=== PATIENT | male | born 1950 | race African-American/Black ===

== ENCOUNTER 2018-03-07 09:45 | Inpatient (IN) ==
[2018-03-07 11:52] LABS: Basophils # 0.1 10*3/uL (0.0-0.2); Basophils % 0.5 % (0.0-0.8); Eosinophils # 0.5 10*3/uL (0.0-0.87); Hematocrit 20.4 VOL% (42.0-52.0); Hemoglobin 6.6 GM/DL (14.0-18.0); Immature Granulocytes % 0.5 %; Immature Granulocytes Absolute 0.05 #; Lymphocytes # 2.3 10*3/uL (1.4-4.0); Lymphocytes % 23.7 % (21.2-54.2); Mean Corpuscular HGB Conc 32.4 GM/DL (32-36); Mean Corpuscular Hemoglobin 30 PG (27-34); Mean Corpuscular Volume 93.2 FL (87-102); Mean Platelet Volume 9.8 FL (9.6-12.0); Monocytes # 0.7 10*3/uL (0.11-0.8); Monocytes % 7.5 % (1.7-12.7); Neutrophils % 62.8 % (38.7-73.9); Platelet Count 296 T/CUMM (130-400); Red Blood Count 2.19 MC/CUMM (3.8-5.5); Red Cell Distribution Width 13.5 % (9.3-17.3); White Blood Count 9.5 T/CUMM (4-12)
[2018-03-07 12:19] LABS: Calcium 6.3 MG/DL (8.5-10.1); Osmolality,Calculated 297.4 MOS/KG (273-304)
[2018-03-07 12:24] LABS: Potassium 6.2 MMOL/L (3.5-5.1)
[2018-03-07] MEDS ORDERED: INSULIN REGULAR 100 UNIT/ML IV STA (12:31)
[2018-03-07] MEDS ORDERED: ALBUTEROL 2.5 MG/3 ML NEB RESP TX STA (12:31)
[2018-03-07] MEDS ORDERED: DEXTROSE 50% 25 GM/50 ML VIAL IV STA (12:31)
[2018-03-07] MEDS ORDERED: GLUCAGON 1 MG VIAL IM PRN ×2 (13:03→13:10)
[2018-03-07] MEDS ORDERED: NICOTINE 21 MG/24 HR PATCH TRANSDERM PRN (13:03)
[2018-03-07] MEDS ORDERED: ONDANSETRON 4 MG/2 ML VIAL IV PRN (13:03)
[2018-03-07] MEDS ORDERED: DEXTROSE 50% 25 GM/50 ML VIAL IV PRN ×2 (13:03→13:10)
[2018-03-07] MEDS ORDERED: guaiFENesin/DM ER 600-30 MG TABLET PO PRN (13:03)
[2018-03-07] MEDS ORDERED: diphenhydrAMINE CAP 25 MG CAPSULE PO PRN (13:03)
[2018-03-07] MEDS ORDERED: DEXTROSE 50% 25 GM/50 ML SYRINGE IV ONE ×2 (13:04→14:22)
[2018-03-07] MEDS ORDERED: SODIUM POLYSTYRENE SULFATE 15 GM/60 ML BOTTLE PO ONE (13:07)
[2018-03-07] MEDS ORDERED: MAGNESIUM SULF RIDER 4 GM in PREMIX 1 EACH IV PRN (13:10)
[2018-03-07] MEDS ORDERED: SODIUM CHLORIDE 0.9% 1,000 ML IV PRN (13:12)
[2018-03-07] MEDS ORDERED: SODIUM CHLORIDE 0.9% 1,000 ML IV SCH (13:30)
[2018-03-07 13:48] LABS: Thyroid Stimulating Hormone 2.44 uIU/ml (0.358-3.74)
[2018-03-07] MEDS ORDERED: SODIUM BICARB INJ 50 MEQ in SODIUM CHLORIDE 0.45% 1,000 ML IV SCH (14:00)
[2018-03-07] MEDS ORDERED: SODIUM BICARB INJ 100 MEQ in SODIUM CHLORIDE 0.9% 1,000 ML IV SCH (14:00)
[2018-03-07] MEDS ORDERED: DEXTROSE 50% 25 GM/50 ML VIAL IV ONE (14:27)
[2018-03-07] MEDS ORDERED: CALCIUM CHLORIDE 1,000 MG in SODIUM CHLORIDE 0.9% 100 ML IV ONE (15:00)
[2018-03-07] MEDS: CITRIC ACID/SODIUM CITRATE 30 ML UDCUP PO SCH ×2 (17:40→20:54)
[2018-03-07 17:59] LABS: % Iron Saturation 15.5 % (18-50); Uric Acid 7.5 MG/DL (3.5-7.2)
[2018-03-07] MEDS: INSULIN REGULAR 100 UNIT/ML SUBCUT SCH ×2 (19:56→21:58)
[2018-03-07] MEDS: CARVEDILOL 12.5 MG TABLET PO SCH (20:52)
[2018-03-07] MEDS: ENOXAPARIN 30 MG/0.3 ML SYRINGE SUBCUT SCH (20:54)
[2018-03-07] MEDS: SODIUM BICARB INJ 100 MEQ in STERILE WATER INJ 1,000 ML IV SCH (21:59)
[2018-03-08 06:26] LABS: Basophils # 0.1 10*3/uL (0.0-0.2); Basophils % 0.7 % (0.0-0.8); Eosinophils # 0.4 10*3/uL (0.0-0.87); Eosinophils % 3.9 % (0.00-10.9); Hematocrit 21.3 VOL% (42.0-52.0); Hemoglobin 7.1 GM/DL (14.0-18.0); Immature Granulocytes % 0.6 %; Immature Granulocytes Absolute 0.06 #; Lymphocytes # 1.8 10*3/uL (1.4-4.0); Lymphocytes % 17.6 % (21.2-54.2); Mean Corpuscular HGB Conc 33.3 GM/DL (32-36); Mean Corpuscular Hemoglobin 30 PG (27-34); Mean Platelet Volume 10.7 FL (9.6-12.0); Monocytes # 0.8 10*3/uL (0.11-0.8); Monocytes % 7.9 % (1.7-12.7); Neutrophils % 69.3 % (38.7-73.9); Platelet Count 284 T/CUMM (130-400); Red Blood Count 2.34 MC/CUMM (3.8-5.5); Risk Ratio 3.23; VLDL CHOLESTEROL 10.8 MG/DL; White Blood Count 10.1 T/CUMM (4-12)
[2018-03-08 06:48] LABS: Albumin 1.9 G/DL (3.4-5.0); Osmolality,Calculated 301.1 MOS/KG (273-304); Potassium 5.2 MMOL/L (3.5-5.1)
[2018-03-08 07:18] LABS: Calcium 5.6 MG/DL (8.5-10.1)
[2018-03-08 07:24] LABS: Hypochromasia 2+; Macrocytosis 1+; Polychromasia Slight
[2018-03-08 07:27] LABS: Acanthocytes Few; Microcytosis 1+
[2018-03-08] MEDS ORDERED: SODIUM BICARBONATE 650 MG TABLET PO SCH (09:00)
[2018-03-08] MEDS ORDERED: CALCITRIOL 0.25 MCG CAPSULE PO SCH (09:00)
[2018-03-08] MEDS: PANTOPRAZOLE 40 MG TABLET PO SCH (09:13)
[2018-03-08] MEDS: CALCIUM ACETATE 667 MG CAPSULE PO SCH ×3 (09:14→17:19)
[2018-03-08] MEDS: DOCUSATE SODIUM 100 MG CAPSULE PO SCH (09:14)
[2018-03-08] MEDS: CARVEDILOL 12.5 MG TABLET PO SCH ×2 (09:15→21:46)
[2018-03-08] MEDS: INSULIN REGULAR 100 UNIT/ML SUBCUT SCH ×4 (09:15→21:46)
[2018-03-08] MEDS: ASPIRIN EC 81 MG TABLET PO SCH (09:15)
[2018-03-08] MEDS: SODIUM BICARB INJ 100 MEQ in STERILE WATER INJ 1,000 ML IV SCH ×2 (09:19→19:21)
[2018-03-08] MEDS: ACETAMINOPHEN 325 MG TABLET PO SCH ×4 (10:24→21:46)
[2018-03-08] MEDS: amLODIPine 10 MG TABLET PO SCH (11:30)
[2018-03-08] MEDS: CITRIC ACID/SODIUM CITRATE 30 ML UDCUP PO SCH (11:30)
[2018-03-08] MEDS ORDERED: EPOETIN ALFA 10,000 UNIT/1 ML VIAL SUBCUT ONE (11:57)
[2018-03-08] MEDS: FERROUS SULFATE 325 MG TABLET PO SCH ×2 (17:11→21:46)
[2018-03-08] MEDS: IRON SUCROSE 200 MG in SODIUM CHLORIDE 0.9% 100 ML IV SCH (17:12)
[2018-03-08] MEDS: MAGNESIUM SULF RIDER 2 GM in PREMIX 1 EACH IV PRN (17:12)
[2018-03-08] MEDS: ENOXAPARIN 30 MG/0.3 ML SYRINGE SUBCUT SCH (21:46)
[2018-03-09 07:23] LABS: Basophils # 0.1 10*3/uL (0.0-0.2); Basophils % 0.5 % (0.0-0.8); Eosinophils # 0.5 10*3/uL (0.0-0.87); Hematocrit 20.1 VOL% (42.0-52.0); Hemoglobin 6.5 GM/DL (14.0-18.0); Immature Granulocytes % 0.7 %; Immature Granulocytes Absolute 0.07 #; Lymphocytes # 1.6 10*3/uL (1.4-4.0); Lymphocytes % 16.8 % (21.2-54.2); Mean Corpuscular HGB Conc 32.3 GM/DL (32-36); Mean Corpuscular Hemoglobin 30 PG (27-34); Mean Corpuscular Volume 91.4 FL (87-102); Mean Platelet Volume 9.9 FL (9.6-12.0); Monocytes # 0.9 10*3/uL (0.11-0.8); Neutrophils # 6.6 10*3/uL (1.4-7.4); Platelet Count 257 T/CUMM (130-400); Red Cell Distribution Width 13.7 % (9.3-17.3); White Blood Count 9.8 T/CUMM (4-12)
[2018-03-09 07:51] LABS: Albumin 1.7 G/DL (3.4-5.0); Osmolality,Calculated 299.3 MOS/KG (273-304)
[2018-03-09 07:57] LABS: Calcium 5.4 MG/DL (8.5-10.1)
[2018-03-09] MEDS ORDERED: CALCIUM CHLORIDE 2,000 MG in SODIUM CHLORIDE 0.9% 100 ML IV ONE (08:26)
[2018-03-09] MEDS ORDERED: SODIUM CHLORIDE 0.9% 1,000 ML IV PRN (08:30)
[2018-03-09] MEDS: SODIUM BICARB INJ 100 MEQ in STERILE WATER INJ 1,000 ML IV SCH ×2 (09:23→17:30)
[2018-03-09] MEDS: CALCITRIOL 0.25 MCG CAPSULE PO SCH (09:24)
[2018-03-09] MEDS: IRON SUCROSE 200 MG in SODIUM CHLORIDE 0.9% 100 ML IV SCH (09:24)
[2018-03-09] MEDS: FERROUS SULFATE 325 MG TABLET PO SCH ×2 (09:24→21:39)
[2018-03-09] MEDS: amLODIPine 10 MG TABLET PO SCH (09:24)
[2018-03-09] MEDS: CALCIUM ACETATE 667 MG CAPSULE PO SCH ×3 (09:24→17:40)
[2018-03-09] MEDS: ASPIRIN EC 81 MG TABLET PO SCH (09:25)
[2018-03-09] MEDS: ACETAMINOPHEN 325 MG TABLET PO SCH ×4 (09:25→21:38)
[2018-03-09] MEDS: INSULIN REGULAR 100 UNIT/ML SUBCUT SCH ×4 (09:25→21:39)
[2018-03-09] MEDS: PANTOPRAZOLE 40 MG TABLET PO SCH (09:25)
[2018-03-09] MEDS: DOCUSATE SODIUM 100 MG CAPSULE PO SCH (09:25)
[2018-03-09] MEDS: CARVEDILOL 12.5 MG TABLET PO SCH ×2 (09:25→21:39)
[2018-03-09] MEDS: ENOXAPARIN 30 MG/0.3 ML SYRINGE SUBCUT SCH (21:38)
[2018-03-09] MEDS: GABAPENTIN 100 MG CAPSULE PO SCH (21:38)
[2018-03-10 05:42] LABS: Basophils # 0.1 10*3/uL (0.0-0.2); Basophils % 0.7 % (0.0-0.8); Eosinophils # 0.7 10*3/uL (0.0-0.87); Eosinophils % 6.4 % (0.00-10.9); Hematocrit 25.3 VOL% (42.0-52.0); Hemoglobin 8.4 GM/DL (14.0-18.0); Immature Granulocytes % 1.6 %; Immature Granulocytes Absolute 0.17 #; Lymphocytes # 2.1 10*3/uL (1.4-4.0); Lymphocytes % 19.1 % (21.2-54.2); Mean Corpuscular HGB Conc 33.2 GM/DL (32-36); Mean Corpuscular Hemoglobin 30 PG (27-34); Mean Corpuscular Volume 91.3 FL (87-102); Monocytes % 9.1 % (1.7-12.7); Neutrophils # 6.9 10*3/uL (1.4-7.4); Neutrophils % 63.1 % (38.7-73.9); Platelet Count 252 T/CUMM (130-400); Red Blood Count 2.77 MC/CUMM (3.8-5.5); Red Cell Distribution Width 13.6 % (9.3-17.3)
[2018-03-10 06:12] LABS: Albumin 1.7 G/DL (3.4-5.0); Calcium 6.4 MG/DL (8.5-10.1); Osmolality,Calculated 295.3 MOS/KG (273-304); Potassium 5.3 MMOL/L (3.5-5.1)
[2018-03-10] MEDS: SODIUM BICARB INJ 100 MEQ in STERILE WATER INJ 1,000 ML IV SCH (06:40)
[2018-03-10] MEDS: GABAPENTIN 100 MG CAPSULE PO SCH ×2 (09:18→21:37)
[2018-03-10] MEDS: IRON SUCROSE 200 MG in SODIUM CHLORIDE 0.9% 100 ML IV SCH (09:18)
[2018-03-10] MEDS: PANTOPRAZOLE 40 MG TABLET PO SCH (09:18)
[2018-03-10] MEDS: CALCITRIOL 0.25 MCG CAPSULE PO SCH (09:18)
[2018-03-10] MEDS: ASPIRIN EC 81 MG TABLET PO SCH (09:18)
[2018-03-10] MEDS: FERROUS SULFATE 325 MG TABLET PO SCH ×2 (09:18→21:37)
[2018-03-10] MEDS: amLODIPine 10 MG TABLET PO SCH (09:18)
[2018-03-10] MEDS: CARVEDILOL 12.5 MG TABLET PO SCH ×2 (09:18→21:38)
[2018-03-10] MEDS: ACETAMINOPHEN 325 MG TABLET PO SCH ×4 (09:18→21:37)
[2018-03-10] MEDS: DOCUSATE SODIUM 100 MG CAPSULE PO SCH (09:18)
[2018-03-10] MEDS: CALCIUM ACETATE 667 MG CAPSULE PO SCH ×3 (09:18→17:15)
[2018-03-10] MEDS: INSULIN REGULAR 100 UNIT/ML SUBCUT SCH ×4 (09:19→21:46)
[2018-03-10] MEDS: ENOXAPARIN 30 MG/0.3 ML SYRINGE SUBCUT SCH (21:53)
[2018-03-11 05:49] LABS: Basophils # 0.1 10*3/uL (0.0-0.2); Basophils % 0.6 % (0.0-0.8); Eosinophils # 0.7 10*3/uL (0.0-0.87); Eosinophils % 6.4 % (0.00-10.9); Hematocrit 25.9 VOL% (42.0-52.0); Hemoglobin 8.7 GM/DL (14.0-18.0); Immature Granulocytes % 1.1 %; Immature Granulocytes Absolute 0.11 #; Lymphocytes # 1.6 10*3/uL (1.4-4.0); Lymphocytes % 15.7 % (21.2-54.2); Mean Corpuscular HGB Conc 33.6 GM/DL (32-36); Mean Corpuscular Hemoglobin 31 PG (27-34); Mean Corpuscular Volume 91.5 FL (87-102); Monocytes # 1.1 10*3/uL (0.11-0.8); Monocytes % 10.1 % (1.7-12.7); Neutrophils # 6.9 10*3/uL (1.4-7.4); Neutrophils % 66.1 % (38.7-73.9); Platelet Count 252 T/CUMM (130-400); Red Blood Count 2.83 MC/CUMM (3.8-5.5); Red Cell Distribution Width 13.7 % (9.3-17.3); White Blood Count 10.4 T/CUMM (4-12)
[2018-03-11 06:06] LABS: Calcium 6.8 MG/DL (8.5-10.1); Osmolality,Calculated 294.4 MOS/KG (273-304); Potassium 5.6 MMOL/L (3.5-5.1)
[2018-03-11] MEDS: amLODIPine 10 MG TABLET PO SCH (08:41)
[2018-03-11] MEDS: DOCUSATE SODIUM 100 MG CAPSULE PO SCH (08:41)
[2018-03-11] MEDS: FERROUS SULFATE 325 MG TABLET PO SCH ×2 (08:41→21:31)
[2018-03-11] MEDS: CALCITRIOL 0.25 MCG CAPSULE PO SCH (08:41)
[2018-03-11] MEDS: CALCIUM ACETATE 667 MG CAPSULE PO SCH ×3 (08:41→17:31)
[2018-03-11] MEDS: ACETAMINOPHEN 325 MG TABLET PO SCH ×4 (08:42→21:25)
[2018-03-11] MEDS: CARVEDILOL 12.5 MG TABLET PO SCH ×2 (08:42→21:24)
[2018-03-11] MEDS: PANTOPRAZOLE 40 MG TABLET PO SCH (08:42)
[2018-03-11] MEDS: INSULIN REGULAR 100 UNIT/ML SUBCUT SCH ×4 (08:42→21:28)
[2018-03-11] MEDS: ASPIRIN EC 81 MG TABLET PO SCH (08:42)
[2018-03-11] MEDS: MAGNESIUM SULF RIDER 2 GM in PREMIX 1 EACH IV PRN (08:42)
[2018-03-11] MEDS: SODIUM BICARBONATE 650 MG TABLET PO SCH ×2 (17:31→21:24)
[2018-03-11] MEDS: GABAPENTIN 100 MG CAPSULE PO SCH (21:25)
[2018-03-11] MEDS: ENOXAPARIN 30 MG/0.3 ML SYRINGE SUBCUT SCH (21:25)
[2018-03-12 07:08] LABS: Basophils # 0.1 10*3/uL (0.0-0.2); Basophils % 0.7 % (0.0-0.8); Eosinophils # 0.7 10*3/uL (0.0-0.87); Eosinophils % 6.8 % (0.00-10.9); Hematocrit 29.1 VOL% (42.0-52.0); Hemoglobin 9.4 GM/DL (14.0-18.0); Immature Granulocytes % 1.4 %; Immature Granulocytes Absolute 0.15 #; Lymphocytes # 1.8 10*3/uL (1.4-4.0); Lymphocytes % 17.3 % (21.2-54.2); Mean Corpuscular HGB Conc 32.3 GM/DL (32-36); Mean Corpuscular Hemoglobin 30 PG (27-34); Mean Platelet Volume 10.1 FL (9.6-12.0); Monocytes # 0.8 10*3/uL (0.11-0.8); Monocytes % 7.5 % (1.7-12.7); Neutrophils % 66.3 % (38.7-73.9); Platelet Count 281 T/CUMM (130-400); Red Blood Count 3.13 MC/CUMM (3.8-5.5); White Blood Count 10.5 T/CUMM (4-12)
[2018-03-12 07:46] LABS: Calcium 7.6 MG/DL (8.5-10.1); Osmolality,Calculated 294.3 MOS/KG (273-304); Potassium 5.5 MMOL/L (3.5-5.1)
[2018-03-12] MEDS ORDERED: ceFAZolin 2,000 MG in PREMIX 1 EACH IV ONE (08:50)
[2018-03-12] MEDS ORDERED: SODIUM POLYSTYRENE SULFATE 15 GM/60 ML BOTTLE PO ONE ×2 (08:51→18:00)
[2018-03-12] MEDS: INSULIN REGULAR 100 UNIT/ML SUBCUT SCH ×4 (09:16→21:33)
[2018-03-12] MEDS: SODIUM BICARBONATE 650 MG TABLET PO SCH ×3 (09:22→21:30)
[2018-03-12] MEDS: CALCITRIOL 0.25 MCG CAPSULE PO SCH (09:22)
[2018-03-12] MEDS: PANTOPRAZOLE 40 MG TABLET PO SCH (09:23)
[2018-03-12] MEDS: amLODIPine 10 MG TABLET PO SCH (09:23)
[2018-03-12] MEDS: ASPIRIN EC 81 MG TABLET PO SCH (09:23)
[2018-03-12] MEDS: CARVEDILOL 12.5 MG TABLET PO SCH ×2 (09:23→21:32)
[2018-03-12] MEDS: CALCIUM ACETATE 667 MG CAPSULE PO SCH ×3 (09:23→17:19)
[2018-03-12] MEDS: FERROUS SULFATE 325 MG TABLET PO SCH ×2 (09:23→21:32)
[2018-03-12] MEDS: DOCUSATE SODIUM 100 MG CAPSULE PO SCH (09:23)
[2018-03-12] MEDS: ACETAMINOPHEN 325 MG TABLET PO SCH ×4 (09:39→21:31)
[2018-03-12] MEDS: GABAPENTIN 100 MG CAPSULE PO SCH (21:31)
[2018-03-12] MEDS: ENOXAPARIN 30 MG/0.3 ML SYRINGE SUBCUT SCH (21:33)
[2018-03-12] MEDS: TRIAMCINOLONE 0.1% CREAM 15 GM TUBE TOP SCH (21:33)
[2018-03-13 07:02] LABS: Basophils # 0.1 10*3/uL (0.0-0.2); Basophils % 0.7 % (0.0-0.8); Eosinophils # 0.7 10*3/uL (0.0-0.87); Eosinophils % 6.4 % (0.00-10.9); Hematocrit 27.2 VOL% (42.0-52.0); Hemoglobin 8.7 GM/DL (14.0-18.0); Immature Granulocytes Absolute 0.11 #; Lymphocytes % 17.1 % (21.2-54.2); Mean Corpuscular Hemoglobin 31 PG (27-34); Mean Corpuscular Volume 95.4 FL (87-102); Mean Platelet Volume 10.1 FL (9.6-12.0); Monocytes % 8.4 % (1.7-12.7); Neutrophils # 7.6 10*3/uL (1.4-7.4); Neutrophils % 66.4 % (38.7-73.9); Platelet Count 268 T/CUMM (130-400); Red Blood Count 2.85 MC/CUMM (3.8-5.5); Red Cell Distribution Width 13.7 % (9.3-17.3); White Blood Count 11.4 T/CUMM (4-12)
[2018-03-13 07:33] LABS: Calcium 7.5 MG/DL (8.5-10.1); Osmolality,Calculated 297.1 MOS/KG (273-304); Potassium 5.4 MMOL/L (3.5-5.1)
[2018-03-13] MEDS: INSULIN REGULAR 100 UNIT/ML SUBCUT SCH ×4 (07:49→21:26)
[2018-03-13] MEDS ORDERED: ceFAZolin 2,000 MG in PREMIX 1 EACH IV ONE (08:00)
[2018-03-13] MEDS: CARVEDILOL 12.5 MG TABLET PO SCH ×2 (08:53→21:31)
[2018-03-13] MEDS: amLODIPine 10 MG TABLET PO SCH (08:53)
[2018-03-13] MEDS: CALCIUM ACETATE 667 MG CAPSULE PO SCH ×3 (11:04→16:23)
[2018-03-13] MEDS: DOCUSATE SODIUM 100 MG CAPSULE PO SCH (11:05)
[2018-03-13] MEDS: SODIUM BICARBONATE 650 MG TABLET PO SCH ×3 (11:05→21:36)
[2018-03-13] MEDS: FERROUS SULFATE 325 MG TABLET PO SCH ×2 (11:05→21:30)
[2018-03-13] MEDS: ASPIRIN EC 81 MG TABLET PO SCH (11:05)
[2018-03-13] MEDS: ACETAMINOPHEN 325 MG TABLET PO SCH ×4 (11:05→21:33)
[2018-03-13] MEDS: PANTOPRAZOLE 40 MG TABLET PO SCH (11:11)
[2018-03-13] MEDS ORDERED: BUPIVACAINE SPINAL 0.75% 2 ML AMP SPINAL ONE (12:38)
[2018-03-13] MEDS ORDERED: MORPHINE 10 MG/10 ML VIAL ONE (12:38)
[2018-03-13] MEDS ORDERED: MIDAZOLAM 2 MG/2 ML VIAL ONE (13:21)
[2018-03-13] MEDS ORDERED: PROPOFOL 200 MG/20 ML VIAL IV ONE (14:42)
[2018-03-13] MEDS ORDERED: fentaNYL 100 MCG/2 ML VIAL ONE (14:42)
[2018-03-13] MEDS ORDERED: PHENYLEPHRINE 10 MG/1 ML VIAL IV ONE (14:43)
[2018-03-13] MEDS ORDERED: MORPHINE 4 MG/1 ML VIAL IV PRN (15:37)
[2018-03-13] MEDS: GABAPENTIN 100 MG CAPSULE PO SCH ×2 (16:22→21:31)
[2018-03-13] MEDS: CALCITRIOL 0.25 MCG CAPSULE PO SCH (16:23)
[2018-03-13 17:58] LABS: Basophils # 0.1 10*3/uL (0.0-0.2); Basophils % 1.1 % (0.0-0.8); Eosinophils # 0.6 10*3/uL (0.0-0.87); Eosinophils % 5.1 % (0.00-10.9); Immature Granulocytes Absolute 0.11 #; Lymphocytes # 2.8 10*3/uL (1.4-4.0); Lymphocytes % 25.2 % (21.2-54.2); Mean Corpuscular Hemoglobin 31 PG (27-34); Mean Corpuscular Volume 96.2 FL (87-102); Mean Platelet Volume 9.8 FL (9.6-12.0); Monocytes # 0.8 10*3/uL (0.11-0.8); Monocytes % 7.6 % (1.7-12.7); Neutrophils # 6.6 10*3/uL (1.4-7.4); Platelet Count 301 T/CUMM (130-400); Red Cell Distribution Width 13.8 % (9.3-17.3)
[2018-03-13] MEDS ORDERED: MEPERIDINE 50 MG/1 ML VIAL IV ONE (18:06)
[2018-03-13 18:19] LABS: Calcium 7.3 MG/DL (8.5-10.1); Potassium 5.3 MMOL/L (3.5-5.1)
[2018-03-13 18:24] LABS: CKMB % 1.1 %; Troponin I Only < 0.015 NG/ML (0.00-0.045)
[2018-03-13] MEDS: ENOXAPARIN 30 MG/0.3 ML SYRINGE SUBCUT SCH (21:26)
[2018-03-13] MEDS: TRIAMCINOLONE 0.1% CREAM 15 GM TUBE TOP SCH (21:28)
[2018-03-13] MEDS: MAGNESIUM SULF RIDER 2 GM in PREMIX 1 EACH IV PRN (21:32)
[2018-03-13] MEDS: MEPERIDINE 50 MG/1 ML VIAL IV PRN (22:23)
[2018-03-14] MEDS: MEPERIDINE 50 MG/1 ML VIAL IV PRN ×3 (02:31→15:35)
[2018-03-14 06:46] LABS: Basophils # 0.1 10*3/uL (0.0-0.2); Basophils % 0.4 % (0.0-0.8); Eosinophils # 0.2 10*3/uL (0.0-0.87); Hematocrit 25.3 VOL% (42.0-52.0); Hemoglobin 8.1 GM/DL (14.0-18.0); Immature Granulocytes % 1.1 %; Immature Granulocytes Absolute 0.18 #; Lymphocytes # 0.5 10*3/uL (1.4-4.0); Mean Corpuscular Hemoglobin 31 PG (27-34); Mean Corpuscular Volume 95.1 FL (87-102); Mean Platelet Volume 9.7 FL (9.6-12.0); Monocytes # 0.9 10*3/uL (0.11-0.8); Monocytes % 5.7 % (1.7-12.7); Neutrophils # 14.4 10*3/uL (1.4-7.4); Neutrophils % 88.8 % (38.7-73.9); Platelet Count 253 T/CUMM (130-400); Red Blood Count 2.66 MC/CUMM (3.8-5.5); Red Cell Distribution Width 13.8 % (9.3-17.3); White Blood Count 16.2 T/CUMM (4-12)
[2018-03-14 07:21] LABS: Hypochromasia 1+; Target Cells Slight
[2018-03-14 07:24] LABS: Calcium 7.3 MG/DL (8.5-10.1); Osmolality,Calculated 296.7 MOS/KG (273-304); Potassium 5.1 MMOL/L (3.5-5.1)
[2018-03-14] MEDS: INSULIN REGULAR 100 UNIT/ML SUBCUT SCH ×4 (08:45→20:34)
[2018-03-14] MEDS: amLODIPine 10 MG TABLET PO SCH (08:46)
[2018-03-14] MEDS: GABAPENTIN 100 MG CAPSULE PO SCH ×3 (08:46→20:32)
[2018-03-14] MEDS: CALCIUM ACETATE 667 MG CAPSULE PO SCH ×3 (08:46→18:14)
[2018-03-14] MEDS: DOCUSATE SODIUM 100 MG CAPSULE PO SCH (08:47)
[2018-03-14] MEDS: CALCITRIOL 0.25 MCG CAPSULE PO SCH (08:47)
[2018-03-14] MEDS: PANTOPRAZOLE 40 MG TABLET PO SCH (08:48)
[2018-03-14] MEDS: CARVEDILOL 12.5 MG TABLET PO SCH ×2 (08:48→20:32)
[2018-03-14] MEDS: TRIAMCINOLONE 0.1% CREAM 15 GM TUBE TOP SCH ×2 (08:48→20:44)
[2018-03-14] MEDS: ASPIRIN EC 81 MG TABLET PO SCH (08:48)
[2018-03-14] MEDS: SODIUM BICARBONATE 650 MG TABLET PO SCH ×3 (08:48→20:32)
[2018-03-14] MEDS: FERROUS SULFATE 325 MG TABLET PO SCH ×2 (08:48→20:32)
[2018-03-14] MEDS: ACETAMINOPHEN 325 MG TABLET PO SCH ×4 (08:49→20:34)
[2018-03-14] MEDS ORDERED: ERGOCALCIFEROL 50,000 UNIT CAPSULE PO SCH (11:00)
[2018-03-14] MEDS: ENOXAPARIN 30 MG/0.3 ML SYRINGE SUBCUT SCH (20:32)
[2018-03-15] MEDS: MEPERIDINE 50 MG/1 ML VIAL IV PRN ×2 (01:41→08:26)
[2018-03-15 06:50] LABS: Basophils # 0.1 10*3/uL (0.0-0.2); Basophils % 0.3 % (0.0-0.8); Eosinophils # 0.4 10*3/uL (0.0-0.87); Eosinophils % 1.9 % (0.00-10.9); Hematocrit 22.9 VOL% (42.0-52.0); Hemoglobin 7.6 GM/DL (14.0-18.0); Immature Granulocytes % 1.1 %; Lymphocytes # 1.1 10*3/uL (1.4-4.0); Lymphocytes % 5.9 % (21.2-54.2); Mean Corpuscular HGB Conc 33.2 GM/DL (32-36); Mean Corpuscular Hemoglobin 31 PG (27-34); Mean Corpuscular Volume 93.1 FL (87-102); Mean Platelet Volume 10.1 FL (9.6-12.0); Monocytes # 1.5 10*3/uL (0.11-0.8); Monocytes % 8.2 % (1.7-12.7); Neutrophils # 15.3 10*3/uL (1.4-7.4); Neutrophils % 82.6 % (38.7-73.9); Platelet Count 228 T/CUMM (130-400); Red Blood Count 2.46 MC/CUMM (3.8-5.5); Red Cell Distribution Width 13.9 % (9.3-17.3); White Blood Count 18.6 T/CUMM (4-12)
[2018-03-15 07:18] LABS: Calcium 6.4 MG/DL (8.5-10.1); Osmolality,Calculated 293.5 MOS/KG (273-304); Potassium 4.5 MMOL/L (3.5-5.1)
[2018-03-15 07:31] LABS: Band Neutrophils 1 % (0-10); Eosinophils 7 % (0-10); Hypochromasia 1+; Lymphocytes 4 % (20-55); Platelet Estimate Adequate; Segmented Neutrophils 79 % (50-85); Total Cells Counted 100
[2018-03-15] MEDS: SODIUM BICARBONATE 650 MG TABLET PO SCH ×3 (08:21→20:55)
[2018-03-15] MEDS: FERROUS SULFATE 325 MG TABLET PO SCH ×2 (08:21→20:55)
[2018-03-15] MEDS: ASPIRIN EC 81 MG TABLET PO SCH (08:21)
[2018-03-15] MEDS: ACETAMINOPHEN 325 MG TABLET PO SCH ×4 (08:22→20:58)
[2018-03-15] MEDS: CALCITRIOL 0.25 MCG CAPSULE PO SCH (08:23)
[2018-03-15] MEDS: CALCIUM ACETATE 667 MG CAPSULE PO SCH ×3 (08:24→18:33)
[2018-03-15] MEDS: CARVEDILOL 12.5 MG TABLET PO SCH ×2 (08:25→20:55)
[2018-03-15] MEDS: amLODIPine 10 MG TABLET PO SCH (08:25)
[2018-03-15] MEDS: PANTOPRAZOLE 40 MG TABLET PO SCH (08:25)
[2018-03-15] MEDS: DOCUSATE SODIUM 100 MG CAPSULE PO SCH (08:25)
[2018-03-15] MEDS: GABAPENTIN 100 MG CAPSULE PO SCH ×3 (08:25→20:56)
[2018-03-15] MEDS ORDERED: SODIUM CHLORIDE 0.9% 1,000 ML IV PRN (08:43)
[2018-03-15] MEDS: INSULIN REGULAR 100 UNIT/ML SUBCUT SCH ×4 (08:53→20:56)
[2018-03-15] MEDS: TRIAMCINOLONE 0.1% CREAM 15 GM TUBE TOP SCH ×2 (14:41→20:59)
[2018-03-15] MEDS: CALCITRIOL 0.5 MCG CAPSULE PO SCH (20:55)
[2018-03-15] MEDS: ENOXAPARIN 30 MG/0.3 ML SYRINGE SUBCUT SCH (20:59)
[2018-03-15 21:03] LABS: Hematocrit 27.8 VOL% (42.0-52.0); Hemoglobin 9.2 GM/DL (14.0-18.0)
[2018-03-16 06:41] LABS: Basophils # 0.1 10*3/uL (0.0-0.2); Basophils % 0.3 % (0.0-0.8); Eosinophils # 0.3 10*3/uL (0.0-0.87); Eosinophils % 1.2 % (0.00-10.9); Hematocrit 31.6 VOL% (42.0-52.0); Hemoglobin 10.4 GM/DL (14.0-18.0); Immature Granulocytes % 1.8 %; Immature Granulocytes Absolute 0.39 #; Lymphocytes # 1.2 10*3/uL (1.4-4.0); Lymphocytes % 5.4 % (21.2-54.2); Mean Corpuscular HGB Conc 32.9 GM/DL (32-36); Mean Corpuscular Hemoglobin 30 PG (27-34); Mean Corpuscular Volume 90.8 FL (87-102); Mean Platelet Volume 10.1 FL (9.6-12.0); Monocytes # 1.5 10*3/uL (0.11-0.8); Monocytes % 7.1 % (1.7-12.7); Neutrophils % 84.2 % (38.7-73.9); Platelet Count 241 T/CUMM (130-400); Red Blood Count 3.48 MC/CUMM (3.8-5.5); Red Cell Distribution Width 14.6 % (9.3-17.3); White Blood Count 21.4 T/CUMM (4-12)
[2018-03-16 07:05] LABS: Calcium 8.3 MG/DL (8.5-10.1); Osmolality,Calculated 288.8 MOS/KG (273-304); Potassium 4.3 MMOL/L (3.5-5.1)
[2018-03-16 07:06] LABS: Band Neutrophils 4 % (0-10); Eosinophils 1 % (0-10); Lymphocytes 2 % (20-55); Platelet Estimate Normal; Segmented Neutrophils 87 % (50-85); Total Cells Counted 100
[2018-03-16] MEDS: INSULIN REGULAR 100 UNIT/ML SUBCUT SCH ×5 (08:57→21:30)
[2018-03-16] MEDS: CARVEDILOL 12.5 MG TABLET PO SCH ×2 (08:58→20:28)
[2018-03-16] MEDS: DOCUSATE SODIUM 100 MG CAPSULE PO SCH (08:58)
[2018-03-16] MEDS: amLODIPine 10 MG TABLET PO SCH (08:58)
[2018-03-16] MEDS: CALCIUM ACETATE 667 MG CAPSULE PO SCH ×3 (08:58→17:30)
[2018-03-16] MEDS: SODIUM BICARBONATE 650 MG TABLET PO SCH ×3 (08:58→20:28)
[2018-03-16] MEDS: CALCITRIOL 0.5 MCG CAPSULE PO SCH ×2 (08:58→20:28)
[2018-03-16] MEDS: ACETAMINOPHEN 325 MG TABLET PO SCH ×2 (08:59→14:20)
[2018-03-16] MEDS: PANTOPRAZOLE 40 MG TABLET PO SCH (08:59)
[2018-03-16] MEDS: FERROUS SULFATE 325 MG TABLET PO SCH ×2 (08:59→20:28)
[2018-03-16] MEDS: GABAPENTIN 100 MG CAPSULE PO SCH ×3 (08:59→20:28)
[2018-03-16] MEDS: ASPIRIN EC 81 MG TABLET PO SCH (08:59)
[2018-03-16] MEDS: TRIAMCINOLONE 0.1% CREAM 15 GM TUBE TOP SCH ×2 (09:05→20:30)
[2018-03-16] MEDS ORDERED: ZALEPLON 5 MG CAPSULE PO PRN (09:39)
[2018-03-16] MEDS ORDERED: VANCOMYCIN INJ 1,250 MG in SODIUM CHLORIDE 0.9% 250 ML IV PRN (09:42)
[2018-03-16] MEDS ORDERED: VANCOMYCIN INJ 1,250 MG in SODIUM CHLORIDE 0.9% 250 ML IV ONE (10:30)
[2018-03-16] MEDS: MEPERIDINE 50 MG/1 ML VIAL IV PRN ×2 (10:40→20:24)
[2018-03-16] MEDS: MEROPENEM 1,000 MG in SYRINGE 1 EACH IV SCH ×2 (11:25→20:28)
[2018-03-16] MEDS ORDERED: ACETAMINOPHEN 325 MG TABLET PO PRN (15:58)
[2018-03-16] MEDS: ENOXAPARIN 30 MG/0.3 ML SYRINGE SUBCUT SCH (20:35)
[2018-03-17] MEDS: MEROPENEM 1,000 MG in SYRINGE 1 EACH IV SCH (04:49)
[2018-03-17 06:04] LABS: Basophils # 0.1 10*3/uL (0.0-0.2); Basophils % 0.4 % (0.0-0.8); Eosinophils # 0.5 10*3/uL (0.0-0.87); Eosinophils % 2.7 % (0.00-10.9); Hematocrit 30.5 VOL% (42.0-52.0); Hemoglobin 9.8 GM/DL (14.0-18.0); Immature Granulocytes % 2.4 %; Lymphocytes # 1.2 10*3/uL (1.4-4.0); Mean Corpuscular HGB Conc 32.1 GM/DL (32-36); Mean Corpuscular Hemoglobin 30 PG (27-34); Mean Corpuscular Volume 91.9 FL (87-102); Monocytes # 1.3 10*3/uL (0.11-0.8); Monocytes % 7.6 % (1.7-12.7); Neutrophils # 13.5 10*3/uL (1.4-7.4); Neutrophils % 79.9 % (38.7-73.9); Platelet Count 270 T/CUMM (130-400); Red Blood Count 3.32 MC/CUMM (3.8-5.5); Red Cell Distribution Width 14.6 % (9.3-17.3); White Blood Count 16.9 T/CUMM (4-12)
[2018-03-17 06:35] LABS: Calcium 8.1 MG/DL (8.5-10.1); Osmolality,Calculated 291.7 MOS/KG (273-304); Potassium 4.2 MMOL/L (3.5-5.1)
[2018-03-17] MEDS: CALCITRIOL 0.5 MCG CAPSULE PO SCH ×2 (09:15→21:25)
[2018-03-17] MEDS: ASPIRIN EC 81 MG TABLET PO SCH (09:16)
[2018-03-17] MEDS: SODIUM BICARBONATE 650 MG TABLET PO SCH ×3 (09:16→21:07)
[2018-03-17] MEDS: GABAPENTIN 100 MG CAPSULE PO SCH ×3 (09:16→21:07)
[2018-03-17] MEDS: FERROUS SULFATE 325 MG TABLET PO SCH ×2 (09:16→21:07)
[2018-03-17] MEDS: amLODIPine 10 MG TABLET PO SCH (09:16)
[2018-03-17] MEDS: CALCIUM ACETATE 667 MG CAPSULE PO SCH ×3 (09:16→17:33)
[2018-03-17] MEDS: CARVEDILOL 25 MG TABLET PO SCH ×2 (09:16→21:07)
[2018-03-17] MEDS: DOCUSATE SODIUM 100 MG CAPSULE PO SCH (09:16)
[2018-03-17] MEDS: PANTOPRAZOLE 40 MG TABLET PO SCH (09:16)
[2018-03-17] MEDS: INSULIN REGULAR 100 UNIT/ML SUBCUT SCH ×4 (09:16→21:40)
[2018-03-17] MEDS: TRIAMCINOLONE 0.1% CREAM 15 GM TUBE TOP SCH ×2 (09:17→21:39)
[2018-03-17] MEDS: MEROPENEM 500 MG in SYRINGE 1 EACH IV SCH (17:33)
[2018-03-17] MEDS: ENOXAPARIN 30 MG/0.3 ML SYRINGE SUBCUT SCH (21:09)
[2018-03-18] MEDS: MEROPENEM 500 MG in SYRINGE 1 EACH IV SCH ×2 (04:20→18:01)
[2018-03-18 06:30] LABS: Basophils # 0.1 10*3/uL (0.0-0.2); Basophils % 0.5 % (0.0-0.8); Eosinophils # 0.5 10*3/uL (0.0-0.87); Eosinophils % 3.4 % (0.00-10.9); Hematocrit 28.4 VOL% (42.0-52.0); Hemoglobin 9.5 GM/DL (14.0-18.0); Immature Granulocytes % 3.2 %; Immature Granulocytes Absolute 0.45 #; Lymphocytes # 1.2 10*3/uL (1.4-4.0); Lymphocytes % 8.7 % (21.2-54.2); Mean Corpuscular HGB Conc 33.5 GM/DL (32-36); Mean Corpuscular Hemoglobin 30 PG (27-34); Mean Corpuscular Volume 90.4 FL (87-102); Monocytes # 1.3 10*3/uL (0.11-0.8); Monocytes % 9.2 % (1.7-12.7); Neutrophils # 10.7 10*3/uL (1.4-7.4); Platelet Count 277 T/CUMM (130-400); Red Blood Count 3.14 MC/CUMM (3.8-5.5); Red Cell Distribution Width 14.6 % (9.3-17.3); White Blood Count 14.2 T/CUMM (4-12)
[2018-03-18 06:48] LABS: Calcium 8.2 MG/DL (8.5-10.1); Osmolality,Calculated 296.5 MOS/KG (273-304); Potassium 4.7 MMOL/L (3.5-5.1)
[2018-03-18] MEDS ORDERED: BISACODYL 5 MG TABLET PO ONE (07:55)
[2018-03-18] MEDS ORDERED: VANCOMYCIN INJ 1,250 MG in SODIUM CHLORIDE 0.9% 250 ML IV ONE (09:00)
[2018-03-18] MEDS: INSULIN REGULAR 100 UNIT/ML SUBCUT SCH ×4 (09:53→22:24)
[2018-03-18] MEDS: DOCUSATE SODIUM 100 MG CAPSULE PO SCH ×2 (09:53→20:53)
[2018-03-18] MEDS: amLODIPine 10 MG TABLET PO SCH (09:54)
[2018-03-18] MEDS: CARVEDILOL 25 MG TABLET PO SCH ×2 (09:55→22:21)
[2018-03-18] MEDS: CALCIUM ACETATE 667 MG CAPSULE PO SCH ×3 (09:55→17:30)
[2018-03-18] MEDS: PANTOPRAZOLE 40 MG TABLET PO SCH (09:55)
[2018-03-18] MEDS: CALCITRIOL 0.5 MCG CAPSULE PO SCH (09:55)
[2018-03-18] MEDS: SODIUM BICARBONATE 650 MG TABLET PO SCH ×3 (09:55→20:52)
[2018-03-18] MEDS: TRIAMCINOLONE 0.1% CREAM 15 GM TUBE TOP SCH ×2 (09:55→20:55)
[2018-03-18] MEDS: FERROUS SULFATE 325 MG TABLET PO SCH ×2 (09:55→20:53)
[2018-03-18] MEDS: ASPIRIN EC 81 MG TABLET PO SCH (09:55)
[2018-03-18] MEDS: GABAPENTIN 100 MG CAPSULE PO SCH (20:52)
[2018-03-18] MEDS: ENOXAPARIN 30 MG/0.3 ML SYRINGE SUBCUT SCH (20:54)
[2018-03-19] MEDS: MEROPENEM 500 MG in SYRINGE 1 EACH IV SCH ×2 (03:34→16:30)
[2018-03-19 06:23] LABS: Basophils # 0.1 10*3/uL (0.0-0.2); Basophils % 0.6 % (0.0-0.8); Eosinophils # 0.4 10*3/uL (0.0-0.87); Eosinophils % 3.1 % (0.00-10.9); Hematocrit 25.2 VOL% (42.0-52.0); Hemoglobin 8.3 GM/DL (14.0-18.0); Immature Granulocytes % 4.1 %; Immature Granulocytes Absolute 0.53 #; Lymphocytes # 1.3 10*3/uL (1.4-4.0); Lymphocytes % 10.3 % (21.2-54.2); Mean Corpuscular HGB Conc 32.9 GM/DL (32-36); Mean Corpuscular Hemoglobin 30 PG (27-34); Mean Corpuscular Volume 90.3 FL (87-102); Mean Platelet Volume 10.1 FL (9.6-12.0); Monocytes # 1.3 10*3/uL (0.11-0.8); Monocytes % 10.2 % (1.7-12.7); Neutrophils # 9.3 10*3/uL (1.4-7.4); Neutrophils % 71.7 % (38.7-73.9); Platelet Count 294 T/CUMM (130-400); Red Blood Count 2.79 MC/CUMM (3.8-5.5)
[2018-03-19 07:12] LABS: Band Neutrophils 2 % (0-10); Eosinophils 9 % (0-10); Hypochromasia 1+; Lymphocytes 8 % (20-55); Ovalocytes Slight; Platelet Estimate Adequate; Segmented Neutrophils 71 % (50-85); Total Cells Counted 100
[2018-03-19] MEDS: INSULIN REGULAR 100 UNIT/ML SUBCUT SCH ×4 (10:08→21:48)
[2018-03-19] MEDS: CALCITRIOL 0.5 MCG CAPSULE PO SCH (10:10)
[2018-03-19] MEDS: CARVEDILOL 25 MG TABLET PO SCH ×2 (10:10→21:47)
[2018-03-19] MEDS: CALCIUM ACETATE 667 MG CAPSULE PO SCH ×3 (10:10→16:29)
[2018-03-19] MEDS: SODIUM BICARBONATE 650 MG TABLET PO SCH ×3 (10:11→21:47)
[2018-03-19] MEDS: ASPIRIN EC 81 MG TABLET PO SCH (10:11)
[2018-03-19] MEDS: amLODIPine 10 MG TABLET PO SCH (10:11)
[2018-03-19] MEDS: DOCUSATE SODIUM 100 MG CAPSULE PO SCH ×2 (10:11→21:47)
[2018-03-19] MEDS: TRIAMCINOLONE 0.1% CREAM 15 GM TUBE TOP SCH ×2 (10:11→21:50)
[2018-03-19] MEDS: FERROUS SULFATE 325 MG TABLET PO SCH (10:11)
[2018-03-19] MEDS: PANTOPRAZOLE 40 MG TABLET PO SCH (10:11)
[2018-03-19] MEDS: ALBUMIN 25% 25 GM in PREMIX 1 EACH IV SCH ×2 (12:03→21:45)
[2018-03-19] MEDS: GABAPENTIN 100 MG CAPSULE PO SCH (21:46)
[2018-03-19] MEDS: ENOXAPARIN 30 MG/0.3 ML SYRINGE SUBCUT SCH (21:50)
[2018-03-20] MEDS: ALBUMIN 25% 25 GM in PREMIX 1 EACH IV SCH ×3 (03:49→20:33)
[2018-03-20] MEDS: MEROPENEM 500 MG in SYRINGE 1 EACH IV SCH ×2 (04:43→16:03)
[2018-03-20 06:50] LABS: Basophils # 0.1 10*3/uL (0.0-0.2); Basophils % 0.5 % (0.0-0.8); Eosinophils # 0.5 10*3/uL (0.0-0.87); Eosinophils % 3.5 % (0.00-10.9); Hematocrit 22.1 VOL% (42.0-52.0); Hemoglobin 7.4 GM/DL (14.0-18.0); Immature Granulocytes % 5.3 %; Immature Granulocytes Absolute 0.69 #; Lymphocytes # 1.5 10*3/uL (1.4-4.0); Lymphocytes % 11.5 % (21.2-54.2); Mean Corpuscular HGB Conc 33.5 GM/DL (32-36); Mean Corpuscular Hemoglobin 30 PG (27-34); Mean Corpuscular Volume 90.2 FL (87-102); Mean Platelet Volume 10.2 FL (9.6-12.0); Monocytes # 1.3 10*3/uL (0.11-0.8); Monocytes % 9.7 % (1.7-12.7); Neutrophils # 9.1 10*3/uL (1.4-7.4); Neutrophils % 69.5 % (38.7-73.9); Platelet Count 296 T/CUMM (130-400); Red Blood Count 2.45 MC/CUMM (3.8-5.5); Red Cell Distribution Width 13.9 % (9.3-17.3)
[2018-03-20 07:10] LABS: Albumin 2.2 G/DL (3.4-5.0); Osmolality,Calculated 304.1 MOS/KG (273-304); Potassium 4.2 MMOL/L (3.5-5.1)
[2018-03-20 07:13] LABS: Eosinophils 1 % (0-10); Hypochromasia 1+; Lymphocytes 14 % (20-55); Segmented Neutrophils 77 % (50-85); Total Cells Counted 100
[2018-03-20 07:14] LABS: Microcytosis Slight; Platelet Estimate Normal
[2018-03-20] MEDS: CARVEDILOL 25 MG TABLET PO SCH ×2 (07:45→20:32)
[2018-03-20] MEDS: amLODIPine 10 MG TABLET PO SCH (07:45)
[2018-03-20] MEDS: CALCIUM ACETATE 667 MG CAPSULE PO SCH ×3 (08:12→17:25)
[2018-03-20] MEDS: INSULIN REGULAR 100 UNIT/ML SUBCUT SCH ×4 (08:12→20:33)
[2018-03-20] MEDS ORDERED: VANCOMYCIN INJ 1,250 MG in SODIUM CHLORIDE 0.9% 250 ML IV ONE (09:00)
[2018-03-20] MEDS ORDERED: ONDANSETRON 4 MG/2 ML VIAL IV PRN (09:57)
[2018-03-20] MEDS: MORPHINE 10 MG/1 ML VIAL IV PRN ×5 (10:00→10:20)
[2018-03-20] MEDS ORDERED: fentaNYL 100 MCG/2 ML VIAL ONE (10:19)
[2018-03-20] MEDS ORDERED: SEVOFLURANE 1 UNIT/15 MINUTE INH ONE (10:19)
[2018-03-20] MEDS ORDERED: PROPOFOL 200 MG/20 ML VIAL IV ONE (10:19)
[2018-03-20] MEDS ORDERED: MIDAZOLAM 2 MG/2 ML VIAL ONE (10:19)
[2018-03-20] MEDS ORDERED: fentaNYL 100 MCG/2 ML VIAL IV ONE (10:30)
[2018-03-20] MEDS: SODIUM BICARBONATE 650 MG TABLET PO SCH ×3 (11:28→20:32)
[2018-03-20] MEDS: ASPIRIN EC 81 MG TABLET PO SCH (11:28)
[2018-03-20] MEDS: CALCITRIOL 0.5 MCG CAPSULE PO SCH (11:28)
[2018-03-20] MEDS: PANTOPRAZOLE 40 MG TABLET PO SCH (11:28)
[2018-03-20] MEDS: TRIAMCINOLONE 0.1% CREAM 15 GM TUBE TOP SCH ×2 (11:31→20:43)
[2018-03-20] MEDS: DOCUSATE SODIUM 100 MG CAPSULE PO SCH ×2 (11:31→20:33)
[2018-03-20] MEDS: ENOXAPARIN 30 MG/0.3 ML SYRINGE SUBCUT SCH (20:33)
[2018-03-20] MEDS: GABAPENTIN 100 MG CAPSULE PO SCH (20:33)
[2018-03-21] MEDS: MEROPENEM 500 MG in SYRINGE 1 EACH IV SCH ×2 (04:09→16:49)
[2018-03-21] MEDS: ALBUMIN 25% 25 GM in PREMIX 1 EACH IV SCH (04:51)
[2018-03-21 06:23] LABS: Basophils # 0.1 10*3/uL (0.0-0.2); Basophils % 0.6 % (0.0-0.8); Eosinophils # 0.5 10*3/uL (0.0-0.87); Eosinophils % 4.2 % (0.00-10.9); Hematocrit 22.1 VOL% (42.0-52.0); Immature Granulocytes % 4.6 %; Immature Granulocytes Absolute 0.58 #; Lymphocytes # 1.5 10*3/uL (1.4-4.0); Lymphocytes % 12.1 % (21.2-54.2); Mean Corpuscular HGB Conc 31.7 GM/DL (32-36); Mean Corpuscular Hemoglobin 30 PG (27-34); Mean Corpuscular Volume 94.8 FL (87-102); Mean Platelet Volume 10.1 FL (9.6-12.0); Monocytes # 1.1 10*3/uL (0.11-0.8); Monocytes % 9.1 % (1.7-12.7); Neutrophils # 8.7 10*3/uL (1.4-7.4); Neutrophils % 69.4 % (38.7-73.9); Platelet Count 301 T/CUMM (130-400); Red Blood Count 2.33 MC/CUMM (3.8-5.5); Red Cell Distribution Width 13.8 % (9.3-17.3); White Blood Count 12.5 T/CUMM (4-12)
[2018-03-21 06:48] LABS: Band Neutrophils 6 % (0-10); Eosinophils 5 % (0-10); Lymphocytes 14 % (20-55); Metamyelocytes 1 %; Segmented Neutrophils 70 % (50-85); Total Cells Counted 100
[2018-03-21 06:55] LABS: Albumin 2.6 G/DL (3.4-5.0); Calcium 7.9 MG/DL (8.5-10.1); Osmolality,Calculated 299.3 MOS/KG (273-304); Osmolality,Calculated 301.1 MOS/KG (273-304); Potassium 4.4 MMOL/L (3.5-5.1); Potassium 4.5 MMOL/L (3.5-5.1)
[2018-03-21] MEDS ORDERED: SILVER NITRATE STICK 1 EACH TOP ONE (07:29)
[2018-03-21] MEDS: INSULIN REGULAR 100 UNIT/ML SUBCUT SCH ×4 (10:25→21:41)
[2018-03-21] MEDS: amLODIPine 10 MG TABLET PO SCH (10:31)
[2018-03-21] MEDS: CALCITRIOL 0.5 MCG CAPSULE PO SCH (10:32)
[2018-03-21] MEDS: SODIUM BICARBONATE 650 MG TABLET PO SCH ×3 (10:32→21:40)
[2018-03-21] MEDS: CALCIUM ACETATE 667 MG CAPSULE PO SCH ×3 (10:32→16:47)
[2018-03-21] MEDS: CARVEDILOL 25 MG TABLET PO SCH ×2 (10:33→21:41)
[2018-03-21] MEDS: PANTOPRAZOLE 40 MG TABLET PO SCH (10:33)
[2018-03-21] MEDS: ASPIRIN EC 81 MG TABLET PO SCH (10:33)
[2018-03-21] MEDS: DOCUSATE SODIUM 100 MG CAPSULE PO SCH ×2 (10:33→21:41)
[2018-03-21] MEDS: GABAPENTIN 100 MG CAPSULE PO SCH (21:40)
[2018-03-21] MEDS: ENOXAPARIN 30 MG/0.3 ML SYRINGE SUBCUT SCH (21:42)
[2018-03-21] MEDS: TRIAMCINOLONE 0.1% CREAM 15 GM TUBE TOP SCH (21:42)
[2018-03-22] MEDS: MEROPENEM 500 MG in SYRINGE 1 EACH IV SCH ×2 (04:57→17:46)
[2018-03-22 05:29] LABS: Basophils # 0.1 10*3/uL (0.0-0.2); Basophils % 0.5 % (0.0-0.8); Eosinophils # 0.7 10*3/uL (0.0-0.87); Eosinophils % 5.2 % (0.00-10.9); Hematocrit 24.4 VOL% (42.0-52.0); Hemoglobin 7.9 GM/DL (14.0-18.0); Immature Granulocytes % 5.9 %; Immature Granulocytes Absolute 0.77 #; Mean Corpuscular HGB Conc 32.4 GM/DL (32-36); Mean Corpuscular Hemoglobin 30 PG (27-34); Mean Corpuscular Volume 93.8 FL (87-102); Mean Platelet Volume 10.2 FL (9.6-12.0); Monocytes # 1.1 10*3/uL (0.11-0.8); Monocytes % 8.1 % (1.7-12.7); Neutrophils # 8.6 10*3/uL (1.4-7.4); Neutrophils % 65.3 % (38.7-73.9); Platelet Count 395 T/CUMM (130-400); Red Cell Distribution Width 13.6 % (9.3-17.3); White Blood Count 13.2 T/CUMM (4-12)
[2018-03-22 05:50] LABS: Albumin 2.5 G/DL (3.4-5.0); Calcium 8.3 MG/DL (8.5-10.1); Osmolality,Calculated 299.3 MOS/KG (273-304); Potassium 4.6 MMOL/L (3.5-5.1)
[2018-03-22 06:11] LABS: Eosinophils 4 % (0-10); Lymphocytes 10 % (20-55); Myelocytes 3 %; Segmented Neutrophils 76 % (50-85); Total Cells Counted 100
[2018-03-22 06:12] LABS: Anisocytosis 1+; Hypochromasia 1+; Microcytosis 1+; Platelet Estimate Normal
[2018-03-22] MEDS: amLODIPine 10 MG TABLET PO SCH (09:30)
[2018-03-22] MEDS: CALCIUM ACETATE 667 MG CAPSULE PO SCH ×3 (09:47→16:32)
[2018-03-22] MEDS: CARVEDILOL 25 MG TABLET PO SCH ×2 (09:48→22:33)
[2018-03-22] MEDS: ASPIRIN EC 81 MG TABLET PO SCH (09:48)
[2018-03-22] MEDS: CALCITRIOL 0.5 MCG CAPSULE PO SCH (09:48)
[2018-03-22] MEDS: DOCUSATE SODIUM 100 MG CAPSULE PO SCH ×2 (09:49→22:33)
[2018-03-22] MEDS: PANTOPRAZOLE 40 MG TABLET PO SCH (09:49)
[2018-03-22] MEDS: SODIUM BICARBONATE 650 MG TABLET PO SCH ×3 (09:49→22:32)
[2018-03-22] MEDS: INSULIN REGULAR 100 UNIT/ML SUBCUT SCH ×3 (16:38→22:43)
[2018-03-22] MEDS: GABAPENTIN 100 MG CAPSULE PO SCH (22:33)
[2018-03-22] MEDS: ENOXAPARIN 30 MG/0.3 ML SYRINGE SUBCUT SCH (22:34)
[2018-03-23] MEDS: TRIAMCINOLONE 0.1% CREAM 15 GM TUBE TOP SCH ×3 (01:25→20:18)
[2018-03-23] MEDS: MEROPENEM 500 MG in SYRINGE 1 EACH IV SCH (03:40)
[2018-03-23] MEDS: INSULIN REGULAR 100 UNIT/ML SUBCUT SCH ×4 (08:04→23:58)
[2018-03-23] MEDS: CALCITRIOL 0.5 MCG CAPSULE PO SCH (09:41)
[2018-03-23] MEDS: amLODIPine 10 MG TABLET PO SCH (09:43)
[2018-03-23] MEDS: ASPIRIN EC 81 MG TABLET PO SCH (09:44)
[2018-03-23] MEDS: SODIUM BICARBONATE 650 MG TABLET PO SCH ×3 (09:44→20:18)
[2018-03-23] MEDS: CALCIUM ACETATE 667 MG CAPSULE PO SCH ×3 (09:44→17:00)
[2018-03-23] MEDS: CARVEDILOL 25 MG TABLET PO SCH ×2 (09:45→20:18)
[2018-03-23] MEDS: PANTOPRAZOLE 40 MG TABLET PO SCH (09:45)
[2018-03-23] MEDS: DOCUSATE SODIUM 100 MG CAPSULE PO SCH ×2 (11:53→20:18)
[2018-03-23] MEDS ORDERED: VANCOMYCIN INJ 1,250 MG in SODIUM CHLORIDE 0.9% 250 ML IV ONE (12:00)
[2018-03-23] MEDS: ERTAPENEM 500 MG in SODIUM CHLORIDE 0.9% 100 ML IV SCH (15:56)
[2018-03-23] MEDS: GABAPENTIN 100 MG CAPSULE PO SCH (20:17)
[2018-03-23] MEDS: ENOXAPARIN 30 MG/0.3 ML SYRINGE SUBCUT SCH (20:18)
[2018-03-24 05:42] LABS: Basophils # 0.1 10*3/uL (0.0-0.2); Basophils % 0.5 % (0.0-0.8); Eosinophils # 0.5 10*3/uL (0.0-0.87); Eosinophils % 3.5 % (0.00-10.9); Immature Granulocytes % 2.9 %; Immature Granulocytes Absolute 0.38 #; Lymphocytes # 1.3 10*3/uL (1.4-4.0); Lymphocytes % 10.3 % (21.2-54.2); Mean Corpuscular HGB Conc 31.8 GM/DL (32-36); Mean Corpuscular Hemoglobin 30 PG (27-34); Mean Corpuscular Volume 93.2 FL (87-102); Mean Platelet Volume 9.9 FL (9.6-12.0); Monocytes % 7.5 % (1.7-12.7); Neutrophils # 9.8 10*3/uL (1.4-7.4); Neutrophils % 75.3 % (38.7-73.9); Platelet Count 359 T/CUMM (130-400); Red Blood Count 2.36 MC/CUMM (3.8-5.5); Red Cell Distribution Width 13.7 % (9.3-17.3)
[2018-03-24 05:58] LABS: Calcium 7.6 MG/DL (8.5-10.1); Osmolality,Calculated 302.1 MOS/KG (273-304); Potassium 4.7 MMOL/L (3.5-5.1)
[2018-03-24] MEDS: INSULIN REGULAR 100 UNIT/ML SUBCUT SCH ×2 (08:01→13:15)
[2018-03-24] MEDS ORDERED: hydrALAZINE 25 MG TABLET PO SCH (09:00)
[2018-03-24] MEDS ORDERED: TAMSULOSIN 0.4 MG CAPSULE PO SCH (09:00)
[2018-03-24] MEDS: PANTOPRAZOLE 40 MG TABLET PO SCH (09:52)
[2018-03-24] MEDS: CARVEDILOL 25 MG TABLET PO SCH (09:52)
[2018-03-24] MEDS: ASPIRIN EC 81 MG TABLET PO SCH (09:52)
[2018-03-24] MEDS: amLODIPine 10 MG TABLET PO SCH (09:52)
[2018-03-24] MEDS: CALCIUM ACETATE 667 MG CAPSULE PO SCH ×2 (09:52→13:15)
[2018-03-24] MEDS: CALCITRIOL 0.5 MCG CAPSULE PO SCH (09:52)
[2018-03-24] MEDS: SODIUM BICARBONATE 650 MG TABLET PO SCH ×2 (09:52→14:53)
[2018-03-24] MEDS: DOCUSATE SODIUM 100 MG CAPSULE PO SCH (09:52)
[2018-03-24] MEDS: TRIAMCINOLONE 0.1% CREAM 15 GM TUBE TOP SCH (09:53)
[2018-03-24] MEDS ORDERED: SODIUM HYPOCHLORITE 0.25% IRRIG 473 ML BOTTLE TOP SCH (12:30)
[2018-03-24 13:41] VITALS: BP 161/71
[2018-03-24] MEDS: ERTAPENEM 500 MG in SODIUM CHLORIDE 0.9% 100 ML IV SCH (14:53)
[2018-03-24] MEDS ORDERED: FUROSEMIDE 40 MG TABLET PO SCH (16:00)
== END 2018-03-24 16:27 | disposition hospice, home (50) | DRG 580 ==
LOC: N.ED 09:45 → SUATTDRO 12:41 → N.EDINP 12:41 → N.5E 13:23
PROVIDERS: ADMIT Internal Medicine Cardiovascular Disease; ATTEND Internal Medicine

== ENCOUNTER 2018-04-18 16:35 | Observation (INO) ==
[2018-04-18 17:42] LABS: Calcium 6.6 MG/DL (8.5-10.1); Osmolality,Calculated 303.4 MOS/KG (273-304)
[2018-04-18 17:49] LABS: Potassium 6.1 MMOL/L (3.5-5.1)
[2018-04-18] MEDS ORDERED: CALCIUM GLUCONATE 1,000 MG in SODIUM CHLORIDE 0.9% 100 ML IV ONE (18:01)
[2018-04-18] MEDS ORDERED: SODIUM BICARBONATE 50 MEQ/50 ML VIAL IV STA (18:01)
[2018-04-18] MEDS ORDERED: DEXTROSE 50% 25 GM/50 ML VIAL IV STA (18:01)
[2018-04-18] MEDS ORDERED: INSULIN REGULAR 100 UNIT/ML IV STA (18:01)
[2018-04-18] MEDS ORDERED: ZALEPLON 5 MG CAPSULE PO PRN (18:13)
[2018-04-18] MEDS ORDERED: guaiFENesin/DM ER 600-30 MG TABLET PO PRN (18:13)
[2018-04-18] MEDS ORDERED: CALCIUM GLUCONATE 1,000 MG/10 ML VIAL IV ONE (18:29)
[2018-04-18] MEDS ORDERED: DEXTROSE 50% 25 GM/50 ML SYRINGE IV ONE (18:29)
[2018-04-18] MEDS ORDERED: SODIUM BICARBONATE 10 MEQ/10 ML SYRINGE IV ONE (18:32)
[2018-04-18] MEDS ORDERED: SODIUM BICARBONATE PEDIATRIC 5 MEQ/10 ML SYRINGE ONE (18:37)
[2018-04-18] MEDS ORDERED: SODIUM BICARBONATE 50 MEQ/50 ML SYRINGE IV ONE (18:39)
[2018-04-18] MEDS ORDERED: SODIUM POLYSTYRENE SULFATE 15 GM/60 ML BOTTLE PO STA (18:55)
[2018-04-18] MEDS ORDERED: ALUMINUM/MAGNES/SIMETH MAX STR 30 ML UDCUP PO PRN (18:58)
[2018-04-18] MEDS ORDERED: ACETAMINOPHEN 325 MG TABLET PO PRN (18:58)
[2018-04-18] MEDS ORDERED: ONDANSETRON 4 MG/2 ML VIAL IV PRN (18:58)
[2018-04-18] MEDS ORDERED: MAGNESIUM HYDROXIDE SUSP 30 ML UDCUP PO PRN (18:58)
[2018-04-18] MEDS ORDERED: DEXTROSE 50% 25 GM/50 ML VIAL IV PRN (19:01)
[2018-04-18] MEDS ORDERED: GLUCAGON 1 MG VIAL IM PRN (19:01)
[2018-04-18] MEDS ORDERED: TAMSULOSIN 0.4 MG CAPSULE PO SCH (21:00)
[2018-04-18] MEDS: DOCUSATE SODIUM 100 MG CAPSULE PO SCH (21:27)
[2018-04-18] MEDS: MAGNESIUM OXIDE 400 MG TABLET PO SCH (21:27)
[2018-04-18] MEDS: SODIUM BICARBONATE 650 MG TABLET PO SCH (21:28)
[2018-04-18] MEDS: CARVEDILOL 12.5 MG TABLET PO SCH (21:28)
[2018-04-18] MEDS: INSULIN REGULAR 100 UNIT/ML SUBCUT SCH (21:39)
[2018-04-18 22:12] LABS: Basophils # 0.1 10*3/uL (0.0-0.2); Eosinophils # 0.3 10*3/uL (0.0-0.87); Hematocrit 26.4 VOL% (42.0-52.0); Hemoglobin 8.6 GM/DL (14.0-18.0); Immature Granulocytes % 0.6 %; Immature Granulocytes Absolute 0.05 #; Lymphocytes # 2.1 10*3/uL (1.4-4.0); Lymphocytes % 22.9 % (21.2-54.2); Mean Corpuscular HGB Conc 32.6 GM/DL (32-36); Mean Corpuscular Hemoglobin 30 PG (27-34); Mean Platelet Volume 9.8 FL (9.6-12.0); Monocytes # 0.5 10*3/uL (0.11-0.8); Monocytes % 5.9 % (1.7-12.7); Neutrophils % 66.6 % (38.7-73.9); Platelet Count 219 T/CUMM (130-400); Red Cell Distribution Width 16.2 % (9.3-17.3); White Blood Count 8.9 T/CUMM (4-12)
[2018-04-19 05:15] LABS: Albumin 1.8 G/DL (3.4-5.0); Bilirubin,Total 0.4 MG/DL (0.2-1.0); Calcium 6.9 MG/DL (8.5-10.1); Osmolality,Calculated 312.6 MOS/KG (273-304); Total Protein 6.1 G/DL (6.4-8.3)
[2018-04-19] MEDS: INSULIN REGULAR 100 UNIT/ML SUBCUT SCH ×2 (07:44→11:49)
[2018-04-19] MEDS ORDERED: FUROSEMIDE 40 MG TABLET PO SCH (08:00)
[2018-04-19] MEDS: SODIUM BICARBONATE 650 MG TABLET PO SCH (08:31)
[2018-04-19] MEDS: CALCIUM ACETATE 667 MG CAPSULE PO SCH ×2 (08:31→12:52)
[2018-04-19] MEDS: CARVEDILOL 12.5 MG TABLET PO SCH (08:32)
[2018-04-19] MEDS: MAGNESIUM OXIDE 400 MG TABLET PO SCH (08:32)
[2018-04-19] MEDS: DOCUSATE SODIUM 100 MG CAPSULE PO SCH (08:37)
[2018-04-19] MEDS ORDERED: NICOTINE 14 MG/24 HR PATCH TRANSDERM SCH (09:00)
[2018-04-19 12:23] VITALS: BP 194/88
== END 2018-04-19 15:00 | disposition home or self-care (01) ==
LOC: N.EDINP 16:35 → N.ED 16:35 → N.4E 18:47 → N.SDSINP 19:54 → N.4E 19:54 → UNDODISOB 04-19 15:00
PROVIDERS: ADMIT Internal Medicine; ATTEND Internal Medicine